=== PATIENT | male | born 1975 | race Caucasian/White ===

== ENCOUNTER → 2017-09-07 | Outpatient (CLI) | payer OTHER ==
--- NOTE | 2017-09-07 12:52 | Diagnostic Imaging Report ---
INDICATION: Bulge just above the umbilicus. Patient reports that this has been somewhat reduced and is better. TECHNIQUE: Multiple real time stover scale sonographic images were obtained of the soft tissues abdominal wall. CORRELATION STUDY: None FINDINGS: Ultrasound imaging in the area of concern, reported just below the level of the umbilicus, demonstrates no definitive mass lesion. Definitive hernia defect is not the visualized. IMPRESSION: 1.No definitive abnormal mass or discrete hernia defect in the area of concern. If further assessment is desired, CT imaging of the abdomen would be recommended. Dictated by: Dictated on workstation # [id number]
== END ==
LOC: RAD 11:42
PROVIDERS: ATTEND Nurse Practitioner Family
DX: R19.05 Periumbilic swelling, mass or lump (principal)
CPT/HCPCS: 76705

== ENCOUNTER → 2022-08-29 | Outpatient (CLI) | payer OTHER ==
--- NOTE | 2022-08-29 18:24 | Diagnostic Imaging Report ---
PROCEDURE: US Gallbladder. TECHNIQUE: Multiple real-time grayscale images were obtained over the right upper quadrant in various projections. INDICATION: Right lower quadrant pain and fever FINDINGS: The liver is normal in size. There is hepatopedal flow in the main portal vein. There is no cholelithiasis, gallbladder wall thickening or pericholecystic fluid. There is no biliary duct dilatation. Common bile duct measures 4 mm. Pancreas and aorta are obscured by bowel gas. The IVC is patent. Right kidney is normal. IMPRESSION: Unremarkable right upper quadrant ultrasound although examination is technically limited due to patient's body habitus and bowel gas. Dictated by: Dictated on workstation # [id number]
--- NOTE | 2022-08-29 18:24 | Diagnostic Imaging Report ---
PROCEDURE: US Scrotum. TECHNIQUE: Multiple real-time grayscale images were obtained over the scrotum in various projections bilaterally. INDICATION: Right lower quadrant pain. FINDINGS: The right testicle measures 4.9 x 2.5 x 3.3 cm and the left testicle measures 4.6 x 2.2 x 3.2 cm. Both testicles demonstrate normal homogeneous echogenicity and blood flow. There are small bilateral hydroceles. There are 2 cysts in the left epididymal head measuring 4 mm. There is also some questionable slight increased vascularity of the right testicle with respect to the left. IMPRESSION: Two left epididymal cysts. Questionable slight increased blood flow to the right testicle with respect to the left, possibly reflecting orchitis. Recommend clinical correlation. Dictated by: Dictated on workstation # [id number]
== END ==
LOC: RAD 16:28
PROVIDERS: ATTEND Registered Nurse Critical Care Medicine
DX: N50.3 Cyst of epididymis (principal); R50.81 Fever presenting with conditions classified elsewhere; R19.5 Other fecal abnormalities; A77.41 Ehrlichiosis chaffeensis [E. chaffeensis]; M79.18 Myalgia, other site; R53.83 Other fatigue; E55.9 Vitamin D deficiency, unspecified
CPT/HCPCS: 76705; 76870